=== PATIENT | female | born 1990 | race Two or more races ===

== ENCOUNTER 2025-06-09 12:39 | Emergency (ER) | payer MEDICAID, SELFPAY ==
[2025-06-09 13:15] VITALS: BP 108/68; PULSE 62; RESP 16; TEMP 37.1; O2SAT 98
--- NOTE | 2025-06-09 13:21 | XR_ITS ---
Examination: PA lateral chest 2 views TECHNIQUE: Upright PA lateral chest 2 views Date and time: June 09, 2025 1340 hours COMPARISON: May 10, 2017 INDICATIONS: Bodyaches beginning 3 days ago. FINDINGS: Normal heart size. Lungs are clear. Mild thoracolumbar levoscoliosis IMPRESSION: No active disease
--- NOTE | 2025-06-09 13:21 | EKG_ITS ---
[facility] Test Date: 2025-06-09 Pat Name: ALEJO LIGHT Department: Room: - Gender: Female Manager [employer]: : 1990 Requested By: Mahendra Erickson Order Number: [id number] Reading MD: Mahendra Erickson Measurements Intervals Rarden Rate: 61 P: 45 WY: 152 QRS: 37 QRSD: 85 T: 21 QT: 425 QTc: 429 Interpretive Statements SINUS RHYTHM No previous ECG available for comparison /store/S0/[id number].pdf
--- NOTE | 2025-06-09 13:23 | PD.EDRME ---
Rapid Medical Screening Exam E Arrival date/time: 06/09/25 12:39 35-year-old female with no known medical history presents to the emergency room with a chief complaint of chest pain, shortness of breath, generalized weakness, body aches x 3 days I have greeted and performed a focused initial assessment of this patient. A comprehensive ED assessment and evaluation of the patient, analysis of all test results, and completion of the medical decision making process will be conducted by additional ED providers. Chief Complaint: Chest Pain Vital signs: Vital Signs Temperature 98.7 F 06/09/25 13:15 Pulse Rate 62 06/09/25 13:15 Respiratory Rate 16 06/09/25 13:15 Blood Pressure 108/68 06/09/25 13:15 Pulse Oximetry (%) 98 06/09/25 13:15 Oxygen Delivery Method Room Air 06/09/25 13:15 Vital signs reviewed by provider: Yes
[2025-06-09 13:54] LABS: Collection Type, Urine Clean Catch
[2025-06-09 13:59] LABS: Basophils # (Auto) 0.0 Thou/mm3 (0.0-0.2); Basophils % (Auto) 0 % (0-2.5); Eosinophils # (Auto) 0.0 Thou/mm3 (0.0-0.5); Eosinophils % (Auto) 0 % (0-10); Hematocrit 38.6 % (36.0-46.0); Hemoglobin 12.8 g/dL (12.0-16.0); Immature Granulocytes Auto 0.00 Thou/mm3 (0.00-0.00); Lymphocytes # (Auto) 1.1 Thou/mm3 (1.0-4.8); Lymphocytes % (Auto) 33 % (10-50); Mean Corpuscular HGB Conc 33.2 g/dl (31.0-37.0); Mean Corpuscular Hemoglobin 30.1 pg (25.0-35.0); Mean Corpuscular Volume 91 fL (80-100); Monocytes # (Auto) 0.4 Thou/mm3 (0.0-0.8); Monocytes % (Auto) 10 % (0-12); Neutrophils # (Auto) 1.9 Thou/mm3 (1.8-7.7); Neutrophils % (Auto) 56 % (37-80); Nucleated Red Blood Cell # 0.00 Thou/mm3 (0.00-0.00); Nucleated Red Blood Cell % 0 /100 WBC (0); Platelet Count 180 Thou/mm3 (140-440); RDW Standard Deviation 41.4 fL (36.4-46.3); Red Blood Count 4.25 Miln/mm3 (4.00-5.20); White Blood Count 3.4 Thou/mm3 (3.6-11.0)
[2025-06-09 14:09] LABS: Bacteria,Urine Rare; Bilirubin,Urine Negative (Negative); Blood,Urine 3+ (Negative); Clarity,Urine Clear (Clear/Hazy); Color,Urine Lt-Yellow (Lt Yel-Yel); Culture Indicated,Urine Not Indicated; Glucose, Urine Negative (Negative); Ketones,Urine Negative (Negative); Leukocyte Esterase,Urine Negative (Negative); Nitrite,Urine Negative (Negative); PH,Urine 7.5 (5.0-7.0); Protein,Urine Trace (Neg - Trace); RBC,Urine 2 /hpf (0-3); Specific Gravity,Urine 1.019 (1.001-1.035); Squamous Epithelial Cell,Urine 2 /hpf (0-5); Urobilinogen,Urine Negative mg/dL (0.0-1.0); WBC,Urine 3 /hpf (0-5)
[2025-06-09 14:13] LABS: B-Type Natriuretic Peptide < 20 pg/mL (0-100)
[2025-06-09 14:14] LABS: Alanine Aminotransferase 16 U/L (10-49); Albumin, Serum 4.6 gm/dL (3.5-5.0); Albumin/Globulin Ratio 2.1 (1.2-2.2); Alkaline Phosphatase 69 U/L (46-116); Anion Gap 8 (7-16); Aspartate Amino Transferase 21 U/L (0-34); BUN/Creatinine Ratio 11 Ratio (12-20); Bilirubin,Total 0.2 mg/dL (0.3-1.2); Blood Urea Nitrogen 8 mg/dL (9-23); Calcium 8.9 mg/dL (8.3-10.6); Calcium (Corrected) 8.9 mg/dL (8.5-10.1); Carbon Dioxide 27.1 mMol/L (20.0-31.0); Chloride 106 mMol/L (98-107); Creatinine (Component) 0.7 mg/dL (0.6-1.3); Estimated Creatinine Clearance 107.1 mL/min (>60); Globulin 2.2 gm/dL (2.3-3.5); Glucose 84 mg/dL (74-106); Magnesium 2.1 mg/dL (1.6-2.6); Osmolality,Calculated 278 (275-295); Potassium 3.9 mMol/L (3.4-5.1); Sodium 141 mMol/L (136-145); Total Protein 6.8 gm/dL (5.7-8.2); Troponin I < 0.002 ng/mL (0.0-0.045); eGFR > 60 See Note
[2025-06-09 17:04] VITALS: BP 129/74; PULSE 56; RESP 18; TEMP 36.6; O2SAT 100
--- NOTE | 2025-06-09 17:08 | EDNOTE_ITS ---
<Statement entered by Rae Linares MD - 06/20/25 11:13> As co-signing physician, I was present and available for consult prn. I concur with the plan and care as documented by the midlevel provider. ED General RME/HPI General Chief complaint: Chest Pain Stated complaint: PAIN IN CHEST/BACK, WEAKNESS; SENT BY [facility] Time Seen by Provider: 06/09/25 17:02 Arrival date/time: 06/09/25 12:39 CC: Shortness of breath and some mild chest pain with bodyaches HPI ongoing for the past 3 days patient is concerned because prior history of similar events the patient wanted having pneumonia . Patient states she has been taking ibuprofen with relief. Patient denies fever cough painful urination bloody urination altered mentation or chest pain at this time. RME / HPI RME / HPI narrative: 06/09/25 12:39 35-year-old female with no known medical history presents to the emergency room with a chief complaint of chest pain, shortness of breath, generalized weakness, body aches x 3 days I have greeted and performed a focused initial assessment of this patient. A comprehensive ED assessment and evaluation of the patient, analysis of all test results, and completion of the medical decision making process will be conducted by additional ED providers. Related Data Home Medications ?Medication ?Instructions ?Recorded ?Confirmed ibuprofen 800 mg tablet 800 mg PO Q8H PRN Pain 08/0408/06/24 Allergies Allergy/AdvReac Type Severity Reaction Status Date / Time No Known Allergies Allergy Verified 06/09/25 12:45 Review of Systems Review of Systems Narrative Review of Systems: GEN: No fever, no chills, no weight loss EYES: No discharge, no visual changes, no pain HEENT: No ear pain, no congestion, no sore throat PULM: No shortness of breath, no cough, no congestion CV: + chest pain, no dyspnea on exertion, no palpitations GI: No nausea, no vomiting, no diarrhea, no pain, no constipation : No frequency, no urgency, no dysuria MUSC/SKEL: No joint pain, no back pain SKIN: No rash PSYCH: No hallucinations, no depression HEME/LYMPH: No easy bleeding or bruising tendencies NEURO: + weakness, no headache Past Medical History Past Medical History NEUROLOGIC: Negative Neurological Disorders or Seizures CARDIAC: Negative Cardiac Disorders or Congestive Heart Failure RESPIRATORY: Positive Pneumonia; Negative Chronic Obstructive Pulmonary Disease (COPD) GASTROINTESTINAL: Negative Gastrointestinal Disorders GENITOURINARY: Negative Genitourinary Disorders or Renal Disease REPRODUCTIVE: Positive Previous Pregnancies MUSCULOSKELETAL: Negative Musculoskeletal Disorders ENDOCRINE: Negative Endocrine Disorders, Diabetes Mellitus Type 1 or Diabetes Mellitus Type 2 HEMATOLOGIC: Negative Blood Disorders OTHER HISTORY: Positive Chicken Pox, Measles and Mumps; Negative Hospitalization, Autoimmune Disease, Shingles, Blood Transfusions, Blood Transfusion Reaction, Anesthesia Reactions, MRSA or Cancer Family History FAMILY HISTORY: Negative Family Psychiatric Problems, Family Respiratory Disorders, Family Cardiac Disorders, Family Gastrointestinal Problems, Family Cancer, Family Surgery or Family Anesthesia Reaction Social History SMOKING STATUS: Never smoker ED Exam Narrative Physical exam: [General: Not in any acute distress Head normocephalic HEENT: Within acceptable limits Neck is supple nontender Chest equal chest rise nontender to palpation Respiratory: Clear to auscultation no wheezes crackles or rubs CV: Rate rhythm is regular no murmurs rubs or clicks Abdomen is soft nontender no masses positive bowel sounds all 4 quadrants Back: No CVA tenderness no spinous process tenderness from cervical spine thoracic and lumbar spine Skin: Intact no petechiae rash induration ulceration or crepitus Extremities: Moving all extremity against resistance cap refill less than 2 seconds neurosensory intact Neuro: Awake alert oriented x3 Glascow coma 15 no focal deficits] Course Quality Measures none Orders Category Date Time Status Bedside COVID-19 Antigen Test NOW Care 06/09/25 13:22 Active Bedside Influenza A&B Antigen Test NOW Care 06/09/25 13:22 Completed EKG (ED ONLY) *Do not use* NOW Care 06/09/25 13:21 Completed EKG (ED Only) Stat Exams 06/09/25 13:21 Draft XR chest 2V Stat Exams 06/09/25 13:21 Completed B-Type Natriuretic Peptide Stat Lab 06/09/25 13:39 Completed CBC Stat Lab 06/09/25 13:39 Completed Comprehensive Metabolic Panel Stat Lab 06/09/25 13:39 Completed Magnesium Stat Lab 06/09/25 13:39 Completed Troponin I Stat Lab 06/09/25 13:39 Completed Urinalysis, C/S if Indicated Stat Lab 06/09/25 13:30 Completed Vital Signs Vital signs: Vital Signs Temperature 98.7 F 06/09/25 13:15 Pulse Rate 62 06/09/25 13:15 Respiratory Rate 16 06/09/25 13:15 Blood Pressure 108/68 06/09/25 13:15 Pulse Oximetry (%) 98 06/09/25 13:15 Oxygen Delivery Method Room Air 06/09/25 13:15 Discharge Plan Plan Patient Disposition: HOME (Self Care) Patient condition on transfer: Stable Prescriptions/Referrals Prescriptions/Med Rec: No Action ibuprofen 800 mg Tablet 800 mg PO Q8H PRN (Reason: Pain) Referrals: Radha Fiore MD [Primary Care Provider] - In 1 week Problem List Clinical Impression: Fatigue, Chest pain Patient/Caregiver Discharge Instructions Education Materials: ED Chest Pain, Noncardiac Additional Instructions: Take ibuprofen 600 mg every 8 hours [id number] for the next 3 days. If there is worsening of symptoms follow-up with your primary care doctor or return the emergency room medially for further evaluation. Print Language: British Stand Alone Forms: [employer] Award Info., Work/School Release, Patient Portal Info Letter PA/SOCRATES Supervising Physician PA/STAMPING DIE [employer]ER Supervising Physician: Raul Graham ENP [facility] Clinical Information Provided by patient Medical Records Reviewed [facility] Meds/Rx Considered, not Ordered None Labs/Rad/Tests considered, not Ordered None Chronic Illness/Social Conditions which may negatively complicate care or outcome(s)-explain: None or not applicable EKG EKG Interpretation narrative: EKG performed at 1327 shows a ventricular rate of 61 ID interval 152 QRS of 8 5 QTc of 427 this is sinus rhythm. Lab Interpretation Labs: interpreted by vt Lab(s) interpretation(s): CBC shows no leukocytosis anemia thrombocytopenia CMP shows no electrolyte imbalances renal impairment transaminitis or T. bili elevation Troponin is negative BNP is negative Urine shows no acute signs of infection. Imaging Imaging interpretation: interpreted by me Provider imaging interpretation(s): Chest x-rays interpreted me read by radiology shows no active disease. Medication Administration(s) none
== END 2025-06-09 17:49 | disposition home or self-care (01) ==
PROVIDERS: Nurse Practitioner Family; Emergency Provider Emergency Medicine; PCP Obstetrics & Gynecology
DX: R53.83 Other fatigue (principal); R07.9 Chest pain, unspecified
CPT/HCPCS: 36415; 71046; 80053; 81001; 83735; 83880; 84484; 85025; 87400; 87811; 93005; 99283